=== PATIENT | male | born 1955 ===

== ENCOUNTER 2019-02-13 19:10 | Emergency (ER) | payer OTHER ==
[~2019-02-13] VITALS: Ht 172.7 cm; Wt 84.4 kg
[2019-02-13] MEDS ORDERED: PLAVIX75 MG (19:37)
[2019-02-13] MEDS ORDERED: LISINOPRIL5 MG (19:37)
[2019-02-13] MEDS ORDERED: RANITIDINE HCL300 M1 (19:38)
[2019-02-13] MEDS ORDERED: NEURONTIN600 MG (19:38)
[2019-02-13] MEDS ORDERED: TRAMADOL HCL50 MG (19:38)
[2019-02-13] MEDS ORDERED: DICLOFENAC SODI75 MG (19:38)
[2019-02-13] MEDS ORDERED: CLONAZEPAM1 MG (19:39)
[2019-02-13] MEDS ORDERED: ZANAFLEX2 M1 (19:39)
[2019-02-13] MEDS ORDERED: CYMBALTA30 MG (19:39)
[2019-02-13] MEDS ORDERED: TAMS0.4C (19:40)
[2019-02-13] MEDS ORDERED: VITAMIN D310000 UNIT (19:40)
[2019-02-13] MEDS ORDERED: ZOCOR40 MG (19:40)
== END 2019-02-13 22:30 | disposition home or self-care (01) ==
LOC: ER 19:10 → EDBD 19:28 → ER 22:30
DX: M54.5 Low back pain (principal)